=== PATIENT | female | born 1990 | race Hispanic/Latino ===

== ENCOUNTER 2018-08-10 14:03 | Emergency (ER) | payer OTHER ==
[2018-08-10] MEDS ORDERED: ONDANSETRON ODT 4 MG TAB ONE (14:32)
[2018-08-10 14:46] LABS: APPEARANCE,URINE Clear (CLEAR); BILIRUBIN,URINE Negative (NEGATIVE); COLOR,URINE Yellow (YELLOW); GLUCOSE, URINE (UA) Negative (NEGATIVE); KETONES,URINE 15 mg/dL (NEGATIVE); LEUKOCYTE ESTERASE ,URINE Moderate (NEGATIVE); NITRATE,URINE Positive (NEGATIVE); OCCULT BLOOD,URINE Negative (NEGATIVE); PROTEIN,URINE Negative (NEGATIVE)
[2018-08-10 14:49] LABS: HCG,QUAL RESULT NEGATIVE (NEGATIVE)
[2018-08-10 15:02] LABS: BACTERIA,URINE Moderate /HPF (None Seen); RBC,URINE None Seen /HPF (0-1); WBC,URINE 51-100 /HPF (0-1)
[2018-08-10 15:03] LABS: MUCUS,URINE Few LPF (None Seen); SQUAMOUS EPITHELIAL CELL,UR 0-2 /HPF (0-2)
[2018-08-10] MEDS ORDERED: PHENAZOPYRIDINE HCL 200 MG TABLET ONE (15:06)
[2018-08-10] MEDS ORDERED: CEFTRIAXONE SODIUM 1 GM ONE (15:06)
[2018-08-10] MEDS ORDERED: LIDOCAINE HCL-MPF 1% 2ML VIAL ONE (15:06)
== END 2018-08-10 15:32 | disposition home or self-care (01) ==
LOC: EDH 14:03
DX: N30.00 Acute cystitis without hematuria (principal); Z90.49 Acquired absence of other specified parts of digestive tract; Z98.890 Other specified postprocedural states; Z88.8 Allergy status to other drugs, medicaments and biological substances
CPT/HCPCS: 81001; 81025; 96372; 99284; J0696; J3490